=== PATIENT | male | born 1995 | race Hispanic/Latino ===

== ENCOUNTER 2020-06-05 15:51 | Emergency (ER) | payer MEDICAID ==
[2020-06-05] MEDS ORDERED: KETOROLAC TROMETHAMINE 30MG/ML ONE (16:26)
[2020-06-05] MEDS ORDERED: ONDANSETRON HCL 4 MG/2 ML VIAL ONE (16:26)
[2020-06-05] MEDS ORDERED: SODIUM CHLORIDE 0.9% 1000ML 1,000 ML IV ONE (16:26)
[2020-06-05 16:30] LABS: BASOPHILS % (AUTO) 0.5 % (0.0-5.0); EOSINOPHILS % (AUTO) 0.1 % (0.0-8.0); HEMATOCRIT 44.8 % (42-54); LYMPHOCYTES % (AUTO) 13.2 % (21.0-51.0); MEAN CORPUSCULAR HEMOGLOBIN 30.5 pg (27.0-33.0); MEAN CORPUSCULAR HGB CONC 34.8 g/dL (32.0-36.0); MEAN CORPUSCULAR VOLUME 87.7 fL (79-99); MONOCYTES % (AUTO) 6.2 % (3.0-13.0); NEUTROPHILS % (AUTO) 79.5 % (40.0-77.0); PLATELET COUNT (AUTO) 261 K/uL (130-400); RED BLOOD CELL COUNT(AUTO) 5.11 MIL/uL (4.50-6.20); RED CELL DISTRIBUTION WIDTH 11.7 % (11.0-15.5); WHITE BLOOD COUNT (AUTO) 14.2 K/uL (4.8-10.8)
[2020-06-05 16:44] LABS: POTASSIUM 3.5 mmol/L (3.5-5.1)
== END 2020-06-05 18:17 | disposition home or self-care (01) ==
LOC: EDH 15:51
DX: H81.10 Benign paroxysmal vertigo, unspecified ear (principal); R51 Headache; Z72.0 Tobacco use
CPT/HCPCS: 36415; 70450; 80048; 85025; 93005; 96361; 96374; 96375; 99285; J1885; J2405; J7030